=== PATIENT | female | born 1965 | race Caucasian/White ===

== ENCOUNTER 2019-05-06 06:58 | Day surgery (SDC) | payer OTHER ==
[2019-04-29 08:59] LABS: HEMATOCRIT 45.7 % (36.0-47.0); HEMOGLOBIN 15.4 g/dL (12.0-15.5); MEAN CORPUSCULAR HEMOGLOBIN 31.4 pg (27.0-33.4); MEAN CORPUSCULAR HGB CONC 33.7 g/dL (32.0-36.0); MEAN CORPUSCULAR VOLUME 93 fl (80-97); PLATELET COUNT 295 10^3/uL (150-450); RED BLOOD COUNT 4.91 10^6/uL (3.72-5.28); RED CELL DISTRIBUTION WIDTH 13.4 % (11.5-14.0); WHITE BLOOD COUNT 10.1 10^3/uL (4.0-10.5)
[2019-04-29 09:03] LABS: APPEARANCE,URINE SLIGHTLY-CLOUDY; BILIRUBIN,URINE NEGATIVE (NEGATIVE); COLOR,URINE YELLOW; GLUCOSE, URINE NEGATIVE (NEGATIVE); KETONES,URINE TRACE mg/dL (NEGATIVE); LEUKOCYTE ESTERASE,URINE MODERATE (NEGATIVE); NITRITE,URINE NEGATIVE (NEGATIVE); PROTEIN,URINE NEGATIVE (NEGATIVE); URINE SPECIFIC GRAVITY 1.018; UROBILINOGEN,URINE NEGATIVE mg/dL (<2.0)
[2019-04-29 11:00] LABS: ANION GAP 10 (5-19); BLOOD UREA NITROGEN 10 mg/dL (7-20); CALCIUM 10.1 mg/dL (8.4-10.2); CARBON DIOXIDE 27 mmol/L (22-30); CHLORIDE 104 mmol/L (98-107); GLUCOSE 85 mg/dL (75-110); POTASSIUM 4.6 mmol/L (3.6-5.0)
--- NOTE | 2019-04-29 23:37 | EKG REPORT ---
SEVERITY:- NORMAL ECG - SINUS RHYTHM : Confirmed by: Gracy Cole 29-Apr-2019 23:36:05
[~2019-05-06 06:58] MED LIST: CLINDAMYCIN 600 MG/D5W RTU 600 MG/50 ML RTUPB IV PRN; LACTATED RINGERS 1000 ML IV PRN; LIDOCAINE 0.5% INJ-PF (5 MG/ML) 50 ML SDV SUBCUT PRN
[2019-05-06] MEDS ORDERED: CLINDAMYCIN 600 MG/D5W RTU 600 MG/50 ML RTUPB IV ONE (07:13)
[2019-05-06] MEDS ORDERED: PROPOFOL INJ 200 MG/20 ML VIAL IV ONE (09:04)
[2019-05-06] MEDS ORDERED: MIDAZOLAM 2 MG/2 ML INJ ONE (09:04)
[2019-05-06] MEDS ORDERED: FENTANYL CITRATE INJ/PF 100 MCG/2 ML AMPUL ONE (09:04)
[2019-05-06] MEDS ORDERED: LIDOCAINE 2% INJ-PF (20 MG/ML) 10 ML AMPUL ONE (09:04)
[2019-05-06] MEDS ORDERED: BUPIVACAINE HCL 0.5 % INJ/PF 30 ML SDV ONE (09:19)
[2019-05-06] MEDS ORDERED: LIDOCAINE 1%/EPINEPHRINE INJ 20 ML VIAL ONE (09:19)
[2019-05-06] MEDS ORDERED: ONDANSETRON HCL INJ/PF 4 MG/2 ML SDV IV PRN (09:40)
[2019-05-06] MEDS ORDERED: MEPERIDINE HCL/PF INJ 25 MG/1 ML DISP.SYRIN IV PRN (09:40)
[2019-05-06] MEDS ORDERED: FENTANYL CITRATE INJ/PF 100 MCG/2 ML AMPUL IV PRN ×3 (09:40)
[2019-05-06] MEDS ORDERED: OXYCODONE-ACETAMINOPHEN 5-325 MG TABLET PO PRN ×3 (09:40→10:38)
[2019-05-06] MEDS ORDERED: PROMETHAZINE HCL INJ 25 MG/1 ML VIAL IV PRN ×2 (09:40)
[2019-05-06] MEDS ORDERED: DIPHENHYDRAMINE HCL 50 MG/ML VIAL IV PRN (09:40)
--- NOTE | 2019-05-06 10:08 | Discharge Summary ---
Discharge Summary (SDC) - Discharge Final Diagnosis: Right medial meniscal tear Date of Surgery: 05/06/19 Discharge Date: 05/06/19 Condition: Good Treatment or Instructions: Weightbearing as tolerated ambulation. Remove compressive wrap on Saturday. Underneath the compressive wrap is a clear plastic dressing called and OpSite. This can be left in place until you return to the office. You may shower once the compressive dressing has been removed. Prescriptions: Oxycodone HCl/Acetaminophen [Percocet 5-325 mg Tablet] 1 tab PO Q6 PRN #15 tab PRN Reason: Referrals: DEMETRIUS BRYANT DO [Primary Care Provider] - Discharge Diet: Regular Respiratory Treatments at Home: Deep Breathing/Coughing Discharge Activity: Balance Activity w/Rest, No tub bath Home Care Assistance: None Needed Report the Following to Your Physician Immediately: Shortness of Breath, Fever over 101 Degrees, Drainage-Foul Smelling
--- NOTE | 2019-05-06 10:10 | Operative Report ---
Operative Report DATE OF SURGERY: 05/06/19 PREOPERATIVE DIAGNOSIS: Right medial meniscal tear POSTOPERATIVE DIAGNOSIS: Right medial meniscal tear. Grade I chondromalacia medial compartment. Intact ACL. Right lateral meniscal tear. 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 The knee is insufflated with accommodation Marcaine, Xylocaine, and epinephrine. Subsequent medial lateral patella portals are created for the introduction of the arthroscope and debridement instrumentation. The joint is examined in systematic fashion findings as above. Using combination of basket Lang, mechanical shaver, electric frequency ablation probe a partial lateral meniscectomy was performed from approximately 7:00 to 12:00 in the face of the dial. Similarly a partial medial meniscectomy was performed from approximately 6:00 to 3:00 on the face of the dial. The joint is examined in systematic fashion no new findings. Instrumentation was removed. Portals reapproximated interrupted nylon. A sterile compressive dressing was applied and the patient's return to the PACU in satisfactory condition.
[2019-05-06 14:15] VITALS: BP 104/75
== END 2019-05-06 12:05 | disposition home or self-care (01) ==
LOC: OROUT 06:58
PROVIDERS: ATTEND Orthopaedic Surgery
DX: M23.309 Other meniscus derangements, unspecified meniscus, unspecified knee (principal); M23.303 Other meniscus derangements, unspecified medial meniscus, right knee; M22.41 Chondromalacia patellae, right knee; M25.561 Pain in right knee; Z79.899 Other long term (current) drug therapy; Z88.0 Allergy status to penicillin; Z01.818 Encounter for other preprocedural examination
CPT/HCPCS: 93005; 36415; 85027; 80048; 81001; 93010; 01400; 29880; J2250; J3490 ×3; J3010; J2704; 1400